=== PATIENT | male | born 1980 | race Caucasian/White ===

== ENCOUNTER 2020-01-23 17:51 | Emergency (ER) | payer BC ==
[~2020-01-23] VITALS: Ht 182.9 cm; Wt 124.7 kg
[2020-01-23 17:59] VITALS: BP 140/87
[2020-01-23] MEDS ORDERED: KEFLEX500 M1 PO (18:05)
== END 2020-01-23 18:38 | disposition home or self-care (01) ==
LOC: M.ERS 17:51
DX: S91.011A Laceration without foreign body, right ankle, initial encounter (principal); W26.8XXA Contact with other sharp object(s), not elsewhere classified, initial encounter; Y93.89 Activity, other specified; Y92.89 Other specified places as the place of occurrence of the external cause; Y99.8 Other external cause status